=== PATIENT | female | born 1935 | race Caucasian/White ===

== ENCOUNTER → 2024-09-25 11:08 | Outpatient (BNVA) | payer MEDICARE, SELFPAY | PROVIDERS: PCP Registered Nurse; Visit Provider Psychiatry & Neurology Neurology | DX: G43.709 Chronic migraine without aura, not intractable, without status migrainosus (principal); M54.2 Cervicalgia | CPT/HCPCS: 99202 ==

== ENCOUNTER 2024-12-09 10:43 | Outpatient (AMB) | payer MEDICARE, SELFPAY ==
--- NOTE | 2024-12-09 10:56 | MHC.OFFVIS ---
Intake Visit Reasons: follow up Migraines- Intake Note: Patient following up on med increase(duloxetine) and med trial (ubrelvy). reached out to daughter via phone and email regarding where her mom went for PT? Allergies No Known Allergies Allergy (Verified 12/09/24 11:03) Medication List - Last Reconciled 12/09/24 by Aubree Downey MD acetaminophen (Tylenol Extra Strength) 500 mg PO TID PRN apixaban (Eliquis) 5 mg PO BID atorvastatin 80 mg PO DAILY carbamazepine 200 mg PO DAILY cholecalciferol (vitamin D3) 50 mcg PO DAILY duloxetine 30 mg PO BID famotidine 40 mg PO DAILY levothyroxine 50 mcg PO DAILY lorazepam (Ativan) 0.5 mg PO ONCE PRN 1 day magnesium 200 mg PO DAILY memantine 10 mg PO BID metronidazole 1% 1 appl topical BEDTIME triamcinolone acetonide 0.1% 1 appl topical BID-TID vitamin B complex ER (Complex B-100 tablet,extended release) 1 tab PO DAILY HPI Comments Details: 89y/o female calls for follow up of migraines. Her daughter helps with the appointment she is doing OT and using heating pads. Her headaches have decreased in frequency and intensity she wakes up with headaches 3-4 times a week, she takes tylenol 500mg 2-3 tabs a day for 3-4 times week .she has been off butalbital since Sep ( 2 months ago ) History from initial visit- .she was diagnosed with ALzheimers dementia this week by Dr. Salvador- Geriatrics . she started getting more frequent headaches when she was around 57 and was managed by neurologists. she moved here form [place] in Mar 2024 and she was on Butalbital ( fioricet) - 4 tabs /day for her headaches but her new PCP At [facility] is tapering her off fioricet. she had daily headaches for many years - seen multiple neurologists, trialed multiple medications- Topiramate Betablockers Nortriptyline Botox Aumovig Ajovy Nerve blocks Cannot do triptans due to heart issues gabapentin Depakote sumatriptan. She is currently on fioricet ( Butalbital ) 2 tabs a day for 1 week now . she feels her headaches are less now.she still servin sdaily headaches but resolves with 1 fioricet. she has a lock box - nurse administers her medications Her headaches are usually right temporal are - used to be a sharp pain but has allodynia,photophobia, phonophobia . No visual aura . No nausea No sensory aura. Triggers- certain foods - red pepper , mushrooms, sauce etc. SLeep- ok - wakes up 1-4 times to use the bathroom PFS Medical History Cervicalgia Chronic migraine without aura Alzheimer's dementia Hypothyroidism Cognitive impairment Chronic headaches Hx of cardiac pacemaker Surgical History H/O hernia repair History of bunionectomy Family History (Updated 09/25/24 @ 11:23 by DINORA Erickson) Father Heart disease Mother Breast cancer in female Social History Alcohol intake: never Patient Tobacco Use Status: Never used Tobacco Physical Exam Const Other: speech - normal General: cooperative Orientation/consciousness: oriented to person Neuro General: oriented to person Assessment & Plan Assessment & Plan (1) Chronic migraine without aura: Comment: chronic analgesic use - stopped butalbital Code(s): G43.709 - Chronic migraine without aura, not intractable, without status migrainosus Category: Medical Qualifiers: Status migrainosus presence: without status migrainosus Intractability: not intractable Qualified Code(s): G43.709 - Chronic migraine without aura, not intractable, without status migrainosus (2) Cervicalgia: Code(s): M54.2 - Cervicalgia Category: Medical Plan Suggest increase duloxetine 30 mg bid continue memantine 10mg bid ( can help with migraines) Continue carbamazepine 200mg qd suggested excedrin migraine or tylenol 2tabs as needed for migraine F/u with Dr Salvador for Dementia Coding Level of Care Code Tele Est Pt Level 4 (70104) Diagnoses Chronic migraine without aura without status migrainosus, not intractable G43.709 Status migrainosus presence: without status migrainosus Intractability: not intractable Cervicalgia M54.2 Time Spent (min) 22
--- OUTSIDE RECORDS SUMMARY | 2024-12-09 12:45 | XMS_ITS ---
Author Organization [facility] Address [address] [facility] [address] [place] [address] Care Team Providers Care Neurology Manager Name Role Phone Di Alejo Primary Care Provider Rodriguez [facility] [phone] REASON FOR VISIT 6 mth follow up Encounters Encounter Location Date Provider Diagnosis [facility] [address] [place] [address] 08/27/2023 Rodriguez Díaz Plan Of Treatment No Information Progress Notes * Rashmi PLASENCIA CDOB: [birth year] (89 yo F)Acc No.[id number]:08/27/2023 Progress Notes Patient:?Rashmi PLASENCIA Provider:?Rodriguez Díaz MD :[id number]???Age:88 Y???Sex:Female D ate:08/27/2023 Address:[address] [id number] Pcp:Di Alejo Subjective: * Chief Complaints: * ???1. 6 mth follow up. * Medical History:? Objective: * Vitals:? Assessment: Plan: * Treatment: * * Electronic signature of Anastasiya Díaz MD on 12/09/2024 at 12:45 PM EDT Sign off status: Pending * Provider:?Rodriguez Díaz MD Date:?2023 Generated for Kamala pressley/Parker/Karina on:?12/09/2024 12:45 PM EDT
--- OUTSIDE RECORDS SUMMARY | 2024-12-09 12:46 | XMS_ITS | Data Portability ---
Author Organization [facility] GeneCapture s [facility], [facility] Address [address] [place] [address] Care Team Providers Care Transportation Mechanic Name Role Phone SHIRA STRINGER Primary Care Provider Assessment Encounter Date Assessment Date Assessment LastModified by Organization Details LastModified Time 09/23/2024 09/23/2024 Assessment and plan based on Geriatric 5 M framework (Mind, Mobility, Multicomplexity, Medications, and Matters Most) This is an 89 y/o woman with PMH sig for htn, atrial fibrillation, pacemaker, GERD, hypothyroidism, migraines, ostepenia, incontinence, hearing loss, seen for geriatric evaluation in light of cognitive changes. Mind: Cognition: Has mild dementia, which seems c/w Alzheimer's, mild ~ Stage 4/Stage 5, + Vascular, based on history, medical issues as well as MOCA results. Possible contributing factors: migraines and medications to treat, hearing loss, depression/anxiety , weight loss, cardiovascular risk factors Per initial history: Per Rashmi: Memory: unstable , she has noted changes for the past few years. she is forgetting words that are important to her. It has taken a long time to remember where she is living. She has cues/notes around. 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 Denies VH/ AH - does hear God sometimes, denies tremor but has numbness in her feet Denies regular urinary incontinence. Per jane Downsr: They had a neurologist do an assessment around 2015 who did an assessment and thought it was normal aging. She was living on her own in a condo and last November - [place] got a call from GI for consent for colonoscopy as they didnt think she was able to consent. She was unable to tell them her medications. She hired a geriatric SW to talk to her mom. She agreed to move - they helped her with the process and [facility] - gets some supervision. From the time she agreed to move January 2024 - she kind of went off a dedrick. asked dtr to take over all of her bills, and then when she got here - she asked for help doing appointments. Moved [place] here from [place] in March 2024 and moved into her own place in April. Her handwriting is getting much shakier. She is still reading but Yareli is not sure what she reads. She had a cognitive assessment by her PCP and Migraine Neurolgist and they did assessments and was diagnosed with MCI. Dtr would like an assessment and to know how best to help her. Labs: not in chart, per EPIC, cbc and cmp overall normal. Head imaging: not in chart MOCA 8.1, done today, 09/23/24 VIsuospatial/execu tive: 2/5 able to draw contour and put in numbers (though not well spaced) Namin Attention: 01/23 Language: 2/3 difficulty with fluency Abstraction: 2 Delayed recall: 5; MIS = 05/04 Orientation: 01/23 Score: Plan: Further w/u: Would ensure B12, MMA, folate, TSH and RPR have been checked. Dtr will look for prior head imaging and send to us. Could consider Neuropsych assessment - but that is 4 hours long and I dont think will electronic data interchange specialist. Medication mgmt: Goal to taper fioricet to off - should be done in November Could then consider memantine 10 mg bid - taper to off. Continue B Complex supplement. Continue to wear hearing aides - would ask that people speak clearly and slowly. Treat cardiovascular risk factors as you are - sees Dr Feliciano, Cardiology Continue with Nursing and SNUFF DRIER supports as you are - they seem to have made a big difference as well as being in a place with meals - had lost a lot of weight and some social activity. There are some things that we know can help with overall cognition: Important to be an active listener - repeat back, write things down. Our ability to multi- task gets worse as we get older Try to just do one thing at a time Physical activity is the best thing - 30 minutes 4-5 times a week but start off slow and build up Mental activity - learning a new skill Social activity - she used to be a hermit but now is around people all the time. Meditation and/or Fabio Chi can help as well - though I am not sure if Rashmi would be open to these. Caregiver concerns; We reviewed the Dementia umbrella, stages of dementia, available videos and tips on communication. Diagnosis reviewed? (Yes, will discuss at next visit, no diagnosis, diagnosis known) Mood: some depression and anxiety PHQ9: 10 GAD7: 10 - worrying, feeling nervous Plan: Was prescribed cymbalta 30 mg but somehow it was stopped. It was restarted and Rashmi has been on it a month. Can reassess once Fioricet is tapered off. Would benefit from more activity Sheile would like to sleep better and that would help. Could consider melatonin 1-3 mg at bedtime as well. Mobility: Gait instability with falls - multifactorial - hearing loss, deconditioning, dementia, weight loss Dtr noted mom was very active until age 82 and then stopped everything. Continue with walker Would encourage daily walking and some balance training. Dtr will ask staff about a personal financial representative Continue vit D and ensure calcium in foods. Multicomplexity/ Medications: Plan: Getting help with medications. Dtr overseeing appointments which is appropriate. Matters most: Rashmi - good night sleep family - Memory, independence ACP: Health care proxy: Molst: Will discuss next visit. I personally spent 150 minutes preparing for, caring for the patient (F2F and non-F2F), and finalizing the visit for this patient, which included discussion with patient and/or family about diagnosis, prognosis, recommendations, risk/benefits, risk reduction and education of above. Thank you for this interesting consult. Will f/u in 4-6 weeks for cognitive care plan. Not available 09/23/2024 15:03:53 10/27/2024 10/27/2024 This is an 89 y/ o woman with PMH sig for htn, atrial fibrillation, pacemaker, GERD, hypothyroidism, migraines, ostepenia, incontinence, hearing loss, seen for geriatric evaluation in light of cognitive changes. Cognitive Care Plan Elements: 1. Cognition: Has mild dementia, which seems c/w Alzheimer's, mild ~ Stage 4/Stage 5, + Vascular, based on history, medical issues as well as MOCA results. Possible contributing factors: migraines and medications to treat, hearing loss, depression/anxiety , weight loss, cardiovascular risk factors Per initial history: Per Rashim: Memory: unstable , she has noted changes for the past few years. she is forgetting words that are important to her. It has taken a long time to remember where she is living. She has cues/notes around. 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 Denies VH/ AH - does hear God sometimes, denies tremor but has numbness in her feet Denies regular urinary incontinence. Per Yareli, dtr: They had a neurologist do an assessment around 2015 who did an assessment and thought it was normal aging. She was living on her own in a condo and last November - Y[place]li got a call from GI for consent for colonoscopy as they didnt think she was able to consent. She was unable to tell them her medications. She hired a geriatric SW to talk to her mom. She agreed to move - they helped her with the process and [place] now [place] [facility] - gets some supervision. From the time she agreed to move January 2024 - she kind of went off a dedrick. asked dtr to take over all of her bills, and then when she got here - she asked for help doing appointments. [place] in [place] 2024 and moved into her own place in April. Her handwriting is getting much shakier. She is still reading but Yareli is not sure what she reads. She had a cognitive assessment by her PCP and Migraine Neurolgist and they did assessments and was diagnosed with MCI. Dtr would like an assessment and to know how best to help her. Labs: not in chart, per EPIC, cbc and cmp overall normal. Head imaging: not in chart MOCA 8.1, done today, 09/23/24 VIsuospatial/execu tive: 2/5 able to draw contour and put in numbers (though not well spaced) Namin/3 Attention: 01/23 Language: 2/3 difficulty with fluency Abstraction: 2/2 Delayed recall: 25; MIS = 05/04 Orientation: 01/23 Score: 30 Plan: Further w/u: Would ensure B12, MMA, folate, TSH and RPR have been checked - ordered Dtr will look for prior head imaging and send to us. She has a pacemaker and doesnt want to get one. Could consider Neuropsych assessment - but that is 4 hours long and I dont think will electronic data interchange specialist. Medication mgmt: Now off fioricet. Continue memantin 10 mg bid. Continue B Complex supplement. Continue to wear hearing aides - would ask that people speak clearly and slowly. Treat cardiovascular risk factors as you are - sees Dr Feliciano, Cardiology Continue with Nursing and SNUFF DRIER supports as you are - they seem to have made a big difference as well as being in a place with meals - had lost a lot of weight and some social activity. There are some things that we know can help with overall cognition: Important to be an active listener - repeat back, write things down. Our ability to multi- task gets worse as we get older Try to just do one thing at a time Physical activity is the best thing - 30 minutes 4-5 times a week but start off slow and build up Mental activity - learning a new skill Social activity - she used to be a hermit but now is around people all the time. Meditation and/or Fabio Chi can help as well - though I am not sure if Rashmi would be open to these. Caregiver concerns; We reviewed the Dementia umbrella, stages of dementia, available videos and tips on communication. Diagnosis reviewed? (Yes, will discuss at next visit, no diagnosis, diagnosis known) 2. Function: a. [place] ADL: 6 b. [place] IADL: 3 c. Plan: Now living at [facility]. They had been getting 6 hours AIRCRAFT STEEL FABRICATOR and 1 hr nurse, trying to decrease to 4 hours a day, 2 hours in am and 2 hours in pm. Dtr doing finances and she is getting medications. She is no longer driving. 3. Stage of cognitive impairment: a. Dementia Severity Rating Scale (DSRS) : 11, memory, speech, ability to make decisions, social activities (and safety around these), control of urination b. Plan: i. Continue to think about planning for the future based on stages and care recommendations ii. Rashmi is now at the [facility] and getting help from AIRCRAFT STEEL FABRICATOR. The [facility] does the meals and ensures that she has her falls alert bracelet on. 4. Decision-making: a. 3 level rating scale global clinician judgement: somewhat limited for more complicated medical decisions. b. (Able to make own decisions, not able to , uncertain/needs more evaluation) c. Plan: Would ensure HCP/dtr and Rashmi are together for medical appointments/decis ions. 5. Neuropsychiatric symptoms: delusions, depression, anxiety, apathy, disinhibition, irritability a. Assessment tool: NPI-Q (12 items) Severity: 7/ Distress to caregiver: 14 (initial visit) PHQ9: 10 GAD7: 10 - worrying, feeling nervous Plan: Rashmi is now on Cymbalta 30 mg - could increase to Cymbalta 60 mg by PCP Would benefit from more activity Rashmi would like to sleep better and that would help but today sh says she figured how how to do it. 6. Medication review and reconciliation: a. Medications reviewed and reconciled: Yes b. PIMs (Potentially Inappropriate Medications) identified: No c. Administration: Could consider lowering atorvastatin a little. 7. Safety: a. Safety Assessment Guide: i. Is the patient still driving? No ii. Is the patient taking medications as prescribed? yes iii. Are there concerns about safety in the home? yes iv. Has the patient gotten lost in familiar places or wandered? no v. Are firearms present in the home? no vi. Has the patient experienced unsteadiness or sustained falls? yes vii. Does the patient live alone? yes b. Plan: Mobility: Gait instability with falls - multifactorial - hearing loss, deconditioning, dementia, weight loss Dtr noted mom was very active until age 82 and then stopped everything. Continue with walker Would encourage daily walking and some balance training. They are going to get PT in Dtr will ask staff about a personal financial representative Continue vit D and ensure calcium in foods. 8. Caregiver identification and needs assessment: doesnt understand disease a. Assessment tool: Stress thermometer: moderate ; YAHIRT-12: 23 - thinks she should be doing more. b. Plan: Reviewed that Yareli is doing an amazing job supporting her mom, her quality of life and well being, while working to ensure her overall security. Gave her the Dementia Road Map She has joined a weekly support group and knows to look to our website for resources. 9. Advance care planning: Matters most: Rashmi - good night sleep family - Memory, independence a. Checklist reviewed b. Plan (Preferences and legal needs): c. HCP: yes d. MOLST: DNR/DNI e. POA: yes f. Is there an emergency plan in case the caregiver is unable to provide care?: She is at [facility] and getting help. Patient and caregiver resources discussed and/or handed out More than 50% of this 70 minute visit was spent face to face with the patient and/or family caregiver, providing counseling, decision making, and coordination of care. Written plan discussed with and given to the patient and/or family caregiver. Written plan shared with PCP Will f/u in 6 months for a repeat CCP Not available 10/27/2024 15:11:22 Plan of Treatment Reminders Order Date Submit Date Provider Last Modified By Organization Details Last Modified Time Details Appointments COGNITIVE CARE PLANS 2024 11:00A M Silvia [place] MD Not available Not available Not available Lab None recorded. Referral None recorded. Procedures None recorded. Surgeries None recorded. Imaging None recorded. Medication Orders None recorded. Patient TargetsNo targets recorded. Patient InstructionsNo instructions recorded. Reason for Referral None Reported. Results Created Date Observation Date Name Description Value Unit Range Abnormal Flag Note LastModifiedBy Organization Detail LastModifiedTime Result Notes None recorded. Problems Name Problem SNOMED Code Status Onset Date Resolution Date Notes Provider Name and Address Organization Details Recorded Time Hypothyr oidism 94395349 Active 2024 Silvia [place] MD [address] [facility] [address],[facility], [place], [address], [employer] 5 08:03:38 Gastroes ophageal reflux disease 032239328 Active 2024 Silvia [place] MD [address],[facility], [place], [address], [employer] 5 08:03:45 Migraine 88316902 Active 2024 Took Fioricet for many years. Silvia [place] MD [address] , [place], [address], [employer] 5 08:04:02 Paroxysm al atrial fibrilla tion 372029827 Active 2024 Silvia [place] MD [address] , [place], [address], [employer] 5 08:04:19 Ankle edema 34712801 Active 2024 Silvia [place] MD [address], [place], [address], [employer] 08:04:42 Hemorrho ids [id number] Completed 202409/23/2024 Silvia Salvador MD [address], [place], [address], [employer] 08:04:53 Cardiac pacemake r in situ 246006935 Active 2024 Silvia [place] MD [address], [place], [address], [employer] 08:05:30 Memory impairme nt 349530245 Active 2024 Silvia [place] MD [address], [place], [address], [employer] 08:05:41 Osteopen ia 307849530 Active 2024 Silvia [place] MD [address], [place], [address], [employer] 13:09:35 Hearing loss 00651270 Active 2024 Silvia [place] MD [address], [place], [address], [employer] 13:16:29 Unsteady when walking 15609476 Active 2024 Silvia [place] MD [address], [place], [address], [employer] 15:00:06 Alzheime r's disease 47334607 Active 2024 Silvia [place] MD [address], [place], [address], [employer] 15:39:14 Problem Notes None recorded. Medical Equipment None Reported. Allergies No known drug allergies Medications Name Sig Start Date Stop Date Status Note LastModified by Organization Details LastModified Time amoxicillin 500 mg capsule TAKE 1 CAPSULE BY MOUTH THREE TIMES A DAY FOR 7 DAYS 10/27 completed Not Available Not Available Not Available atorvastati n 80 mg tablet TAKE 1 TABLET BY MOUTH EVERY DAY active Not Available Not Available No t Available azithromyci n 250 mg tablet TAKE 2 TABLETS BY MOUTH TODAY, THEN TAKE 1 TABLET DAILY FOR 4 DAYS DIRECTED 10/27 completed Not Available Not Available Not Available famotidine 40 mg tablet 1 TABLET AT BEDTIME ORALLY DAILY/ NEEDED 90 DAYS active Not Available Not Available No t Available triamcinolo ne acetonide 0.1 % topical cream APPLY TO AFFECTED AREA TWICE A DAY active Not Available Not Available No t Available butalbital- acetaminoph en-caffeine 50 mg-325 mg-40 mg tablet TAKE 1 TABLET BY MOUTH EVERY 6 HOURS NEEDED FOR PAIN OR HEADACHE 09/23 completed Not Available Not Available Not Available carbamazepi ne 200 mg tablet TAKE 1 TABLET BY MOUTH EVERY MORNING. active Not Available Not Available No t Available lorazepam 0.5 mg tablet TAKE 1 TABLET BY MOUTH NEEDED FOR ANXIETY 1 HOUR BEFORE THE PROCEDURE AND 1 TAB 30 MINUTES BEFORE 09/23 completed Not Available Not Available Not Available levothyroxi ne 50 mcg tablet TAKE 1 TABLET BY MOUTH EVERY DAY IN THE MORNING active Not Available Not Available No t Available butalbital- aspirin-caf feine 50 mg-325 mg-40 mg capsule TAKE 1 CAPSULE BY MOUTH DAILY NEEDED FOR HEADACHE. 10/27 completed Not Available Not Available Not Available memantine 10 mg tablet TAKE 1 TABLET BY MOUTH TWICE A DAY active Not Available Not Available No t Available memantine 5 mg tablet TAKE 1 TABLET BY MOUTH TWICE A DAY 09/23 completed Not Available Not Available Not Available duloxetine 30 mg capsule,del ayed release TAKE 1 CAPSULE BY MOUTH EVERY DAY active Not Available Not Available No t Available duloxetine 60 mg capsule,del ayed release TAKE 1 CAPSULE BY MOUTH EVERY DAY active Not Available Not Available No t Available Metrogel 1 % topical APPLY TO THE AFFECTED AREA(S) BY TOPICAL ROUTE ONCE DAILY ; RUB IN GENTLY AND COMPLETEL Y active Not Available Not Available No t Available Vitamin D active Not Available Not Criselda ilable Not Available Eliquis 5 mg tablet TAKE 1 TABLET BY MOUTH TWICE A DAY active Not Available Not Available No t Available magnesium aspart,citr ate,oxide active Not Available Not Available No t Available Vitals Date Recorded Oxygen saturation Oxygen saturation in Arterial blood by Pulse oximetry Heart rate Body height Body mass index (BMI) Body weight Systolic blood pressure Diastolic blood pressure Provider Name and Address Organization Details Last Updated DateTime 96 % 96 % 69.02 /min 149.86 cm 32.9 kg/m2 28912.5 6 g 120 mm[Hg] 68 mm[Hg] [employer] [facility] 13:25:12 Date Recorded Body height Body mass index (BMI) Body weight Oxygen saturation Oxygen saturation in Arterial blood by Pulse oximetry Heart rate Systolic blood pressure Diastolic blood pressure Provider Name and Address Organization Details Last Updated DateTime 149.86 cm 33.3 kg/m2 48058.7 4 g 96 % 96 % 69 /min 130 mm[Hg] 68 mm[Hg] [employer] [facility] 14:03:47 Social History None recorded. Functional Status None recorded. Mental Status None recorded. Family History Relationship Description Onset Age of this Age Resolved Age Notes LastModified by Organization Details LastModified Time Mother Malignant tumor of breast 45 65 [email or web address] Not available 2024 13:13:02 Father Disorder of cardiovascul ar system 56 56 [email or web address] Not available 2024 13:13:02 Medical History Condition Response Emphysema N Incontinence Y Edema Y Acid Reflux (GERD) Y Abnormal Bleeding N Urinary Problems Y Abdominal Pain N Back Problems N Thyroid Disease Y Deep Vein Thrombosis N Hearing Loss Y Abnormal Pap Smear N Nervous System Disorder N Parkinson's Disease N Heart Attack (SD) N Dementia N Gynecological HistoryNo gynecological history recorded. Obstetrics History GPAL:G 0 P 0 0 0 0 Past Encounters Encounter ID Performer Location Encounter Start Date Encounter Closed Date Diagnosis/Indication Diagnosis SNOMED-CT Code Diagnosis ICD10 Code Diagnosis Note [id number] MD [facility] [address] [place] [address] 09/23/2024 12:59:02 09/23/2024 15:04:58 Alzheimer's disease 66551601 G30.9 as above Migraine 82923481 G43.90 9 Has been on multiple medication s - and has seen a Neurologis t in the past - Dr Rodriguez Díaz, [facility] in [place], [place] [address] taking quite a lot of fioricet daily - now down to twice a dayGoal to taper off.dtr notes TALBOT have improved. Osteopenia 816176403 M85 .80 Continue vitamin D and calcium in dietEncour age more exercise. Hypothyroidism 52844386 E03.9 continue levothyrox ine. Unsteady when walking 22 235345 R26.89 as above [id number] [facility] [address] [address] [place] [address] 10/27/2024 13:50:52 10/27/2024 18:45:43 Alzheimer's disease 57426672 G30.9 as above Migraine 55922831 G43.90 9 Improved.H as been on multiple medication s - and has seen a Neurologis t in the past - Dr Rodriguez Díaz, [facility] in [place], [place] [address] taking quite a lot of fioricet daily - now off.Contin ues to Tegretol. Osteopenia 903809623 M85 .80 Continue vitamin D and calcium in dietEncour age more exercise - they are working on this. Hypothyroidism 37834191 E03.9 continue levothyrox ine. Unsteady when walking 22 458620 R26.89 as above Health Concerns Section Related Observation LastModified by Organization Detai ls LastModified Time None Recorded Concern Status LastModified by Organization Details LastModified Time None Recorded Advance Directives Directive None Recorded Payers Encounter Date Sequence Insurance Name Policy Number Policy Nieto Covered Member ID Nieto Member ID Guarantor Name 09/23/2024 1 [facility] - MEDICARE PREFERRED (MEDICARE REPLACEMENT HMO) [address] [id number] Rashmi Plasencia 10/27/2024 1 [facility] - MEDICARE PREFERRED (MEDICARE REPLACEMENT HMO) [address] [id number] Rashmi Plasencia Notes Date Note Type Note Provider Name and Address Organization Details Recorded Time 09/23/2024 text/html PCP: Shira Batista NP Echo Medicine Referred by: PCP Person to contact for follow up visits: Yareli Figueroa [place] - dtr Goals for visit: memory assessment Problems or specific concerns for this visit: mild cognitive impairment, getting worse PHQ9: 10GAD7: 10 - worrying, feeling nervous Patient history: Rashmi Memory: unstable , she has noted changes for the past few years. she is forgetting words that are important to her. It has taken a long time to remember where she is living. She has cues/notes around. shelter memory is pretty good.Denies VH/ AH - does hear God sometimes, denies tremor but has numbness in her feetDenies regular urinary incontinence. Very afraid of bowel incontinence, falling.She has been getting nicer since she moved here. She doesnt think about anyone else when she does things. She didnt tell Yareli that she was getting a divorce from her father. Her dad got vascular dementia. She sets limits with her mother. Hearing loss - she wears hearing aids and they are very frustrating. She has multiple pairs of hearing aides. User error . Dtr noted that the ability to interpret what she hears is declining. Family/caregiver history: Yareli They had a neurologist do an assessment around 2015 who did an assessment and thought it was normal aging. She was living on her own in a condo and last November - Yareli got a call from GI for consent for colonoscopy as they didnt think she was able to consent. She was unable to tell them her medications.She hired a geriatric SW to talk to her mom. She agreed to move - they helped her with the process and is now in [place] - gets some supervision.From the time she agreed to move January 2024 - she kind of went off a dedrick. asked dtr to take over all of her bills, and then when she got here - she asked for help doing appointments. Moved up here from [place] in March 2024 and moved into her own place in April.Her handwriting is getting much shakier. She is still reading but Yareli is not sure what she reads. She had a cognitive assessment by her PCP and Migraine Neurolgist and they did assessments and was diagnosed with MCI.Dtr would like an assessment and to know how best to help her. Recent ED visits/hospitalizatio ns: May 2024 ED visit for fall - no issues Function:ADL: (bathing, dressing, toileting, transferring, continence, feeding)help with bathing.IADL: ( Telephone, shopping, food preparation, housekeeping, laundry, Transportation, Medications, Finances)no longer driving, full assist with paying bills and managing finances and taking medicationssome assistance with shopping, preparing food Supports:Help at home: 3 hours a dayWho provides the care? 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 medication, cleaning, bathing, companionshipDo you provide care for a family member? no General information about you: Mobility:Assistive device: walkerAny falls? yes 2If yes, any injuries? May 2024, Spring 2023 - no injuriesAre you afraid of falling? yes Sleep:How would you describe your sleep? fair (options: good, fair, poor)Do you snore? no (options: yes, no, don't know)Have you ever been tested for sleep apnea? dont know (yes, no, don't know) Driving?:noAny concerns? Nutrition:Appetite: goodHas food intake declined over the past 3 months? noWeight loss/gain: lost weightWould you like assistance with meals? no Finances: Any concerns? no Health Maintenance:Overall health: goodDepression//sadne ss: yesAnxiety:yesMemory loss: yesAre you or others concerned about your memory?: yesFeels safe at home: yesHearing Test: yesEye exam: yesDentist: yesHave you decreased the amt of time you spend with family/friends in the past year?: yes/noMore with my dtr, less with friends because I moved. Physical fitness: No Frailty Screening:Fatigue: yesResistance (able to climb a flight of stairs): noAerobic (able to walk a block): noPresence of > 5 illnesses(HTN, DM, CA, chronic respiratorydisease, SD, CVA, arthritis (or RA), CKD, or liver disease): yesWeight loss > 5% in the past 6 months: yesScore: 5 (Robust: 0, Pre-frail: 1-2, Frail: >=3) Social History:Born/raised: [place] - 2 brothers, one still alive.Educational level: BS Business mgmt; she got out of and got a job in [place] and started going to [employer]. Then she stopped, got and went to .Living situation: Independent living; [facility], [facility] [place]), moved here 6 months agoSexual orientation: straightPartnership status: x 2 , after 25 years, 2nd 6 years ago. 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 She had a child when she was 20, gave him up for adoption.In contact with them? yesETOH: used to drink but quit, not a heavier drinkerConcern about amount of ETOH? noTobacco: yes - 1 ppd x 26 years, quit 1984Other drugs: no FH:Father at age 53 from [place] - she was 15, older brother was 156 months later, the doctors told her she had 3 forms of cancer. She at age 67 Silvia Salvador MD [address] [place] [address], [phone], [facility] Salvador [employer] [facility] 09/23/2024 15:04:29 10/27/2024 text/html Subjective:Since last visit: date: Initial visit 09.23.24 Rashmi:Feeling fine overall, breathing is good. Labs were done by Shira Batista, 10.10.24 but not the ones we recommended (not received)TSH 2.07, Dtr noted on 10.09.24 I think I gave these to your office to copy when we did intake but just in case, here is what I have found from prior assessments in 2013 and 2016. I have asked twice for prior MRIs but have not heard back yet. She is off the butalbitol and no longer having sig TALBOT.However, she is having difficulty with hearing aides - she broke one and lost one. AidesThe person who comes from 6-8 PM will put on her headphone for the TV. The nurse told dtr that she scored very well on the MOCA but functionally not great. Falls/change in gait: None, using a walkerED visits/hospitalizatio ns: [facility] 2.13.25 - [facility] PNAChanges in function:Changes in medication: No longer on butalbitol, and not having TALBOT like she said.Was diagnosis from initial visit discussed?: Yes Silvia Salvador MD [address] [place] [address], [phone], [facility] Salvador [employer] [facility] 10/27/2024 15:11:40 OBGyn Episode No OBEpisode recorded.
--- OUTSIDE RECORDS SUMMARY | 2024-12-09 12:46 | XMS_ITS | Patient Health Record ---
Author Organization [facility] Address [address] [facility] [address] [place] [address] Care Team Providers Care Parts Consultant Name Role Phone Di Alejo Primary Care Provider Rodriguez Davidson [phone] Allergies No Known Allergies Reason For Referral No Information Medications Medication SIG (Take, Route, Frequency, Duration) Notes Start Date End Date Status Eliquis 5 MG Oral for 30 Days Active Atorvastatin 40 mg 1 tablet orally at night Active Pantoprazole Sodium 40 MG TAKE 1 TABLET BY MOUTH EVERY DAY Oral for 30 Active carBAMazepine 200 MG 1 tablet Orally Twi ce a day for 90 days Active Haplyscavc-BRTE-Kmprhhkk 50-325-40 MG 1 tablet as needed Orally every 4 hrs for 30 days 06/28/2023 Active Levothyroxine Sodium 50 MCG 1 tablet in the morning on an empty stomach Orally Once a day Active Famotidine 40 MG Oral for 90 Days Active Memantine HCl 5 MG 1 tablet Orally Once a day Active DULoxetine HCl 20 MG Orally QD Active Problems Problem Type SNOMED Code ICD Code Onset Dates Problem Status W/U Status Risk Notes Problem Chronic migraine (840288082) Chronic migraine (G43.709) Active confirmed Problem 343920934 Chronic tension-type headache, not intractable (G44.229) Active confirmed Problem Hemicrania continua (758480256) Hemicrania 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) Active confirmed Problem 97089896 Loss of memory (R41.3) Active confirmed Encounters Encounter Location Date Provider Diagnosis [facility] [address] [facility] [address] [place] [address] 07/09/2024 Rodriguez Díaz Plan Of Treatment Pending Test Test Name Order Date Sedimentation Rate-Westergren 02/13/2018 CRP 02/13/2018 Insurance Providers Payer Name Payer Address Payer Phone Subscriber Number Group Number Insured Name Patient Relationship to Insured Coverage Start Date Coverage End Date [employer] [address] [address] [place] [address] [id number] Rashmi Plasencia Self - patient is the insured Medical (General) History Medical History History ICD Code Hyperlipidemia Migraines MCI Surgical History Surgery Date(Month/Year)
--- OUTSIDE RECORDS SUMMARY | 2024-12-09 12:46 | XMS_ITS ---
Author Organization [facility] Address [address] [facility] [address] [place] [address] Care Team Providers Care Title I Paraprofessional Name Role Phone Di Alejo Primary Care Provider Rodriguez Davidson [facility] [phone] REASON FOR VISIT List of all prior pain killer medications prescribed Encounters Encounter Location Date Provider Diagnosis [facility] [address] [facility] [address] [place] [address] 07/09/2024 Rodriguez Díaz Plan Of Treatment No Information Progress Notes * Rashmi PLASENCIA CDOB: [birth year] (88 yo F)Acc No.[id number]:07/09/2024 Patient:?Rashmi PLASENCIA :1935???Age:88 Y???Sex:Female Address:[address] , [place], [address] * true * Date:? Generated for Printi ng/Faxing/eTransmitting on:?12/09/2024 12:46 PM EDT
--- OUTSIDE RECORDS SUMMARY | 2024-12-09 12:46 | XMS_ITS ---
Author Organization [facility] Address [address] [facility] [address] [place] [address] Care Team Providers Care Bond Analyst Name Role Phone Di Aleoj Primary Care Provider Rodriguez Davidson [facility] [phone] REASON FOR VISIT Refill Encounters Encounter Location Date Provider Diagnosis [facility] [address] [facility] [address] [place] [address] 11/08/2023 Rodriguez Díaz Plan Of Treatment No Information Progress Notes * Rashmi PLASENCIA CDOB: [birth year] (88 yo F)Acc No.[id number]:11/08/2023 Patient:?Rashmi PLASENCIA :1935???Age:88 Y???Sex:Female Address:[address] [facility] [place] [facility] [address] * true * Date:? Generated for Printi ng/Faxing/eTransmitting on:?12/09/2024 12:46 PM EDT
== END 2024-12-10 16:20 | disposition home or self-care (01) ==
LOC: HO.HSMS 10:43
PROVIDERS: PCP Family Medicine; Visit Provider Psychiatry & Neurology Neurology
DX: G43.709 Chronic migraine without aura, not intractable, without status migrainosus (principal); M54.2 Cervicalgia
CPT/HCPCS: 98013

== ENCOUNTER → 2024-12-09 10:43 | Outpatient (BNVA) | payer MEDICARE, SELFPAY | PROVIDERS: PCP Family Medicine; Visit Provider Psychiatry & Neurology Neurology | DX: M54.2 Cervicalgia (principal) ==